=== PATIENT | female | born 1995 | race Caucasian/White ===

== ENCOUNTER 2019-02-22 20:51 | Inpatient (IN) | payer MEDICAID ==
[~2019-02-22] VITALS: Ht 144.8 cm; Wt 50.3 kg
[2019-02-22 21:20] VITALS: Ht 144.8 cm; Wt 50.3 kg
[2019-02-22 21:21] VITALS: BP 112/73; PULSE 115; RESP 17
[2019-02-22] MEDS ORDERED: LACTATED RINGER'S 1,000 ML IV SCH (21:32)
[2019-02-22] MEDS ORDERED: LACTATED RINGER'S 1,000 ML IV PRN (21:32)
[2019-02-22] MEDS ORDERED: AMPICILLIN 2 GM/NS (PMX) 100 ML ONE (21:39)
[2019-02-22] MEDS ORDERED: OXYTOCIN 30 UNITS/LR 500 ML IV PRN (22:00)
[2019-02-22] MEDS ORDERED: IBUPROFEN 600 MG TAB PO PRN (22:00)
[2019-02-22] MEDS ORDERED: OXYTOCIN 30 UNITS/LR 500 ML IV SCH ×2 (22:00)
[2019-02-22] MEDS ORDERED: BUTORPHANOL 2 MG INJ IV PRN ×2 (22:00)
[2019-02-22] MEDS ORDERED: MINERAL OIL LIGHT 10 ML VIAL TOP PRN (22:00)
[2019-02-22] MEDS ORDERED: AMPICILLIN 2 GM/NS (PMX) 100 ML IV ONE (22:00)
[2019-02-22] MEDS ORDERED: LIDOCAINE 1% (MPF) 30 ML INJ INJ PRN (22:00)
[2019-02-22] MEDS ORDERED: CARBOPROST 250 MCG INJ IM PRN (22:00)
[2019-02-22] MEDS ORDERED: MISOPROSTOL 200 MCG TAB PR PRN (22:00)
[2019-02-22] MEDS ORDERED: METHYLERGONOVINE 0.2 MG INJ IM PRN (22:00)
[2019-02-22 23:55] VITALS: BP 109/75; PULSE 83; RESP 18
[2019-02-23 01:00] VITALS: BP 99/60; PULSE 84; RESP 18
[2019-02-23] MEDS ORDERED: MISOPROSTOL 200 MCG TAB PR PRN (01:00)
[2019-02-23] MEDS ORDERED: CARBOPROST 250 MCG INJ IM PRN (01:00)
[2019-02-23] MEDS ORDERED: OXYTOCIN 30 UNITS/LR 500 ML IV PRN (01:00)
[2019-02-23] MEDS ORDERED: OXYCODONE/ASPIRIN (4.88/325) TAB PO PRN ×2 (01:00)
[2019-02-23] MEDS ORDERED: WITCH HAZEL/GLYCERIN PAD PR PRN (01:00)
[2019-02-23] MEDS ORDERED: ZOLPIDEM 5 MG TAB PO PRN (01:00)
[2019-02-23] MEDS: IBUPROFEN 600 MG TAB PO SCH ×4 (01:00→18:00)
[2019-02-23] MEDS ORDERED: LANOLIN HPA 1 PKT TOP PRN (01:00)
[2019-02-23] MEDS ORDERED: METHYLERGONOVINE 0.2 MG INJ IM PRN (01:00)
[2019-02-23] MEDS ORDERED: BENZOCAINE 20% 56 ML SPRAY TOP PRN (01:00)
[2019-02-23] MEDS ORDERED: AMPICILLIN 1 GM/NS (PMX) 50 ML IV SCH (02:00)
[2019-02-23 04:00] VITALS: BP 106/62; PULSE 72; RESP 17
[2019-02-23 08:00] VITALS: BP 101/87; PULSE 74; RESP 16
[2019-02-23] MEDS: SENNA/DOCUSATE NA (8.6MG/50MG) TAB PO SCH ×2 (09:23→22:36)
[2019-02-23 16:00] VITALS: BP 98/65; PULSE 18; RESP 20
[2019-02-23 20:00] VITALS: BP 102/72; PULSE 90; RESP 18
[2019-02-24 04:00] VITALS: BP 101/65; PULSE 81; RESP 17
[2019-02-24] MEDS: IBUPROFEN 600 MG TAB PO SCH ×3 (06:00→12:00)
[2019-02-24 08:00] VITALS: BP 102/76; PULSE 87; RESP 16
[2019-02-24] MEDS ORDERED: DIPHTH/TET/ACEL PERTUSS (ADULT) 0.5 ML VIAL IM* ONE (09:00)
[2019-02-24] MEDS: SENNA/DOCUSATE NA (8.6MG/50MG) TAB PO SCH (09:54)
== END 2019-02-24 13:05 | disposition home or self-care (01) | DRG 807 ==
LOC: OBT 20:51 → L-D 20:53 → OBT 21:20 → L-D 21:23 → PP1 23:53
PROVIDERS: ADMIT Obstetrics & Gynecology; ATTEND Obstetrics & Gynecology
PROC: 10E0XZZ Delivery of Products of Conception, External Approach (ICD-10-PCS; principal; 2019-02-22)
DX: O60.14X0 Preterm labor third trimester with preterm delivery third trimester, not applicable or unspecified (principal); Z37.0 Single live birth; Z3A.36 36 weeks gestation of pregnancy; Z23 Encounter for immunization
CPT/HCPCS: 80307; 85025; 85610; 85730; 86592; 86762; 86850; 86900; 86901; 87340; 90715; 99464; G0463; J0290; J2590; J7120